=== PATIENT | female | born 1990 | race Caucasian/White ===

== ENCOUNTER 2024-08-11 15:48 | Emergency (ER) | payer OTHER ==
[2024-08-11] MEDS ORDERED: METOCLOPRAMIDE 10 MG/2mL INJ ONE (16:22)
[2024-08-11] MEDS ORDERED: NA CHLORIDE 0.9% 1,000 ML ONE ×2 (16:23→16:44)
[2024-08-11 16:33] LABS: Absolute Eosinophils 0.1 K/uL (0-0.5); Absolute Lymphocytes (CBC) 1.7 K/uL (0.7-4.9); Absolute Monocytes 0.8 K/uL (0.1-1.3); Absolute Neutrophil 9.8 K/uL (1.8-8.0); Basophils % 0.3 % (0-1.3); Eosinophils % 0.8 % (0-4.4); Hematocrit 37.8 % (36.0-45.0); Hemoglobin 13.4 g/dL (12.0-15.0); Lymphocytes % 13.9 % (15.3-44.8); MCH 29.5 pg (27.0-35.0); MCHC 35.5 g/dL (32.0-36.0); MCV 83.1 fL (80-100); MPV 8.1 fL (7.6-11.3); Monocytes % 6.6 % (3.3-12.3); Neutrophils % 78.4 % (41.7-73.7); Platelets 333 thou/uL (152-406); RBC Red Blood Cell Count 4.54 M/uL (3.86-4.86); Red Cell Distribution Width 12.7 % (12.1-15.2)
[2024-08-11 16:35] LABS: Specific Gravity > 1.030 (1.005-1.030); Urine Bacteria None Seen /HPF (<20); Urine Bilirubin NEGATIVE (Negative); Urine Blood Negative (Negative); Urine Clarity Extremely Turbid (Clear); Urine Color Yellow (Yellow); Urine Crystals Unidentified Few /HPF (None Seen); Urine Culture Reflex Order NOT NEEDED; Urine Glucose NEGATIVE (Negative); Urine Ketones 4+ (Over) (Negative); Urine Micro Reflex YN NO BILL MICROSCOPIC; Urine Mucus 4+ /HPF (None Seen); Urine Nitrite NEGATIVE (Negative); Urine Protein 2+ (Negative); Urine RBC <5 /HPF (None Seen); Urine Urobilinogen 1+ (Normal); Urine WBC <5 /HPF (<5); Urine WBC Clump Rare /HPF (None Seen)
[2024-08-11 16:48] LABS: Anion Gap 10.5 mEq/L (5.0-15.0); Potassium 3.5 mEq/L (3.5-5.1)
--- NOTE | 2024-08-11 18:30 | EDPHYS ---
Physician Documentation [facility] Name: Marti Gill Age: 33 yrs Sex: Female : 1990 Arrival Date: 08/11/2024 Time: 15:48 Bed 10 Private MD: ED Physician Balaji Garrison HPI: 08/11 15:59 This 33 yrs old Female presents to ER via Ambulatory with complaints of 14 wks sb4 , Vomiting. 15:59 n/v since last night, cannot hold anything down. no diarrhea, fever, abdominal sb4 cramping, vag bleeding. approx 14 weeks , saw OB 2 weeks ago and had ultrasound- everything WNL. BLOCKLAYER: 18:51 Verified me1 Historical: - Allergies: 15:52 Bactrim; aa5 15:52 Sulfa (Sulfonamide Antibiotics); aa5 - PMHx: 15:52 None; aa5 - PSHx: 15:52 section; aa5 - Immunization history:: Adult Immunizations unknown. - Infectious Disease History:: Denies. - Social history:: Smoking status: Patient denies any tobacco usage or history of. ROS: 16:01 Constitutional: Negative for fever, chills, and weight loss, sb4 16:01 Abdomen/GI: Positive for nausea and vomiting, 16:01 All other systems are negative, Exam: 16:01 Head/Face: Normocephalic, atraumatic. Eyes: Extra-ocular motions intact. Periorbital sb4 areas with no swelling, redness, or edema. ENT: Mucous membranes moist. Cardiovascular: Regular rate and rhythm with a normal S1 and S2. Respiratory: No increased work of breathing, no retractions or nasal flaring. Abdomen/GI: Soft, non-tender, no distension. Skin: Warm, dry with normal turgor. Normal color with no rashes, no lesions, and no evidence of cellulitis. 16:01 Constitutional: The patient appears alert, awake, obviously ill, Vital Signs: 15:52 BP 122 / 81; Pulse 110; Resp 18 S; Temp 98.3(O); Pulse Ox 98% on R/A; Weight 65.77 kg aa5 (R); Height 5 ft. 3 in. (R); 17:00 BP 116 / 79; Pulse 107; Resp 17; Pulse Ox 99% ; me1 18:00 BP 119 / 81; Pulse 108; Resp 17; Pulse Ox 98% ; me1 18:50 BP 110 / 65; Pulse 102; Resp 17; Temp 98.2; Pulse Ox 100% ; me1 15:52 Body Mass Index 25.69 (65.77 kg, 160.02 cm) aa5 MDM: 15:51 Medical Screening Exam initiated sb4 19:31 Data reviewed: vital signs, nurses notes, lab test result(s), and as a result, I will sb4 discharge patient. Counseling: I had a detailed discussion with the patient and/or guardian regarding the historical points, exam findings, and any diagnostic results supporting the discharge/admit diagnosis, lab results, the need for outpatient follow up, for definitive care, an OB/Gyne specialist, to return to the emergency department if symptoms worsen or persist or if there are any questions or concerns that arise at home. 08/11 15:58 Order name: CBC with Diff; Complete Time: 16:38 sb4 08/11 15:58 Order name: BMP; Complete Time: 16:48 sb4 08/11 15:58 Order name: UAM; Complete Time: 16:36 sb4 08/11 15:58 Order name: IV Start; Complete Time: 16:26 sb4 08/11 15:58 Order name: FHT's; Complete Time: 17:14 sb4 08/11 17:04 Order name: PO challenge; Complete Time: 18:12 sb4 Administered Medications: 16:35 Drug: NS 0.9% IV 1000 ml IV at 1 bolus Per protocol; to be given as a bolus over 60 me1 minutes Route: IV; Rate: 1 bolus; Site: right antecubital; 18:51 Follow up: Response: No adverse reaction; IV Status: Completed infusion; IV Intake: me1 1000ml 16:35 Drug: metoCLOPramide IVP 10 mg IVP once; over 1 to 2 minutes Route: IVP; Site: right me1 antecubital; 18:05 Follow up: Response: No adverse reaction; Nausea is decreased me1 16:48 Drug: NS 0.9% IV 1000 ml IV at 1000 ml once; to be given as a bolus over 60 minutes me1 Route: IV; Rate: 1000 ml; Site: right antecubital; 18:50 Follow up: Response: No adverse reaction; IV Status: Completed infusion; IV Intake: me1 1000ml Disposition: 18:02 I was immediately available on-site in the Emergency Department for consultation in the ms3 care of the patient. Disposition Summary: 08/11/24 18:30 Discharge Ordered Notes: Location: Home sb4 Problem: new sb4 Symptoms: have improved sb4 Condition: Stable sb4 Diagnosis - Vomiting of , unspecified sb4 Followup: sb4 - With: Emergency Department - When: As needed - Reason: Worsening of condition Discharge Instructions: - Discharge Summary Sheet sb4 - Morning Sickness, Dant-br-Tfbc sb4 Forms: - Patient Portal Instructions sb4 - Leadership Thank You Letter sb4 Prescriptions: - ondansetron 4 mg Oral Tablet,disintegrating - take 1 tablet ORAL route every 6 hours; 12 tablet; Refills: 0, Product sb4 Selection Permitted Signatures: Dispatcher [employer] EDLeila Evans, RN RN aa5 Balaji Garrison, DO ms3 Anabella Arnold PAAbel PAAbel sb4 Rosie Hu, ISIDORO RN me1 Corrections: (The following items were deleted from the chart) 15:59 15:59 CBC+H.LAB.BRZ ordered. EDMS EDMS 15:59 15:59 BASIC METABOLIC PANEL+C.LAB.BRZ ordered. EDMS EDMS 15:59 15:59 Urinalysis W/Microscopic+U.LAB.BRZ ordered. EDMS EDMS
--- NOTE | 2024-08-11 18:30 | ER ---
Nurse's Notes [facility] Name: Marti Gill Age: 33 yrs Sex: Female : 1990 Arrival Date: 08/11/2024 Time: 15:48 Bed 10 Private MD: Diagnosis: Vomiting of , unspecified Presentation: 08/11 15:52 Chief complaint: Patient states: nausea since Sunday and vomiting since yesterday. aa5 Reports being 14 weeks and reports "had a stomach bug about a week ago". Coronavirus screen: vomiting. Ebola Screen: Patient denies travel to an Ebola-affected area in the 21 days before illness onset. Initial Sepsis Screen: Does the patient meet any 2 criteria? HR > 90 bpm. Does the patient have a suspected source of infection? No. Patient's initial sepsis screen is negative. Risk Assessment: Do you want to hurt yourself or someone else? Patient reports no desire to harm self or others. Onset of symptoms was August 2024. 15:52 Method Of Arrival: Ambulatory aa5 15:52 Acuity: SANTIAGO 3 aa5 BREAD BAKER: 18:51 Verified me1 Historical: - Allergies: 15:52 Bactrim; aa5 15:52 Sulfa (Sulfonamide Antibiotics); aa5 - PMHx: 15:52 None; aa5 - PSHx: 15:52 section; aa5 - Immunization history:: Adult Immunizations unknown. - Infectious Disease History:: Denies. - Social history:: Smoking status: Patient denies any tobacco usage or history of. Screenin:15 [facility] ED Fall Risk Assessment (Adult) History of falling in the last 3 months, me1 including since admission No falls in past 3 months (0 pts) Confusion or Disorientation No (0 pts) Intoxicated or Sedated No (0 pts) Impaired Gait No (0 pts) Mobility Assist Device Used No (0 pt) Altered Elimination No (0 pt) Score/Fall Risk Level 0 - 2 = Low Risk Maintained a safe environment, Provided non-skid footwear, Hourly rounding (assess needs \\T\\ fall precautionary measures) done. Abuse screen: Denies threats or abuse. Nutritional screening: No deficits noted. Tuberculosis screening: No symptoms or risk factors identified. Assessment: 16:15 General: Appears ill, well groomed, well developed, well nourished, Behavior is calm, me1 cooperative, appropriate for age, Reports nausea since Sunday and vomiting since yesterday. Reports being 14 weeks and reports "had a stomach bug about a week ago". Pain: Denies pain. Neuro: Level of Consciousness is awake, alert, obeys commands, Oriented to person, place, time, situation, Appropriate for age. Cardiovascular: Patient's skin is warm and dry. Respiratory: Airway is patent Respiratory effort is even, unlabored, Respiratory pattern is regular, symmetrical. GI: Abdomen is round Bowel sounds present X 4 quads. Reports nausea, vomiting. : No signs and/or symptoms were reported regarding the genitourinary system. EENT: No signs and/or symptoms were reported regarding the EENT system. Derm: Skin is intact, with poor turgor Skin is pale. Musculoskeletal: No signs and/or symptoms reported regarding the musculoskeletal system. 17:15 Reassessment: FHT 155 bpm, provider notified. . aa5 Vital Signs: 15:52 BP 122 / 81; Pulse 110; Resp 18 S; Temp 98.3(O); Pulse Ox 98% on R/A; Weight 65.77 kg aa5 (R); Height 5 ft. 3 in. (R); 17:00 BP 116 / 79; Pulse 107; Resp 17; Pulse Ox 99% ; me1 18:00 BP 119 / 81; Pulse 108; Resp 17; Pulse Ox 98% ; me1 18:50 BP 110 / 65; Pulse 102; Resp 17; Temp 98.2; Pulse Ox 100% ; me1 15:52 Body Mass Index 25.69 (65.77 kg, 160.02 cm) aa5 ED Course: 15:50 Patient arrived in ED. mr 15:50 Anabella Arnold PA-C is PHCP. sb4 15:50 Balaji Garrison DO is Attending Physician. sb4 15:51 Arm band placed on. aa5 15:54 Triage completed. aa5 16:15 Patient has correct armband on for positive identification. Bed in low position. Call me1 light in reach. Side rails up X 1. Provided Education on: POC. Verbalized understanding.. Client placed on continuous cardiac and pulse oximetry monitoring. NIBP monitoring applied. Pulse ox on. NIBP on. 16:15 No provider procedures requiring assistance completed. me1 16:18 Rosie Hu, RN is Primary Nurse. me1 16:26 UAM Sent. me1 16:26 CBC with Diff Sent. me1 16:26 BMP Sent. me1 16:26 Initial lab(s) drawn, by me, sent to lab. Urine collected: clean catch specimen, me1 cloudy, kiana colored. Inserted saline lock: 22 gauge in right antecubital area, using aseptic technique. 18:51 IV discontinued, intact, bleeding controlled, No redness/swelling at site. Pressure me1 dressing applied. Administered Medications: 16:35 Drug: NS 0.9% IV 1000 ml IV at 1 bolus Per protocol; to be given as a bolus over 60 me1 minutes Route: IV; Rate: 1 bolus; Site: right antecubital; 18:51 Follow up: Response: No adverse reaction; IV Status: Completed infusion; IV Intake: me1 1000ml 16:35 Drug: metoCLOPramide IVP 10 mg IVP once; over 1 to 2 minutes Route: IVP; Site: right me1 antecubital; 18:05 Follow up: Response: No adverse reaction; Nausea is decreased me1 16:48 Drug: NS 0.9% IV 1000 ml IV at 1000 ml once; to be given as a bolus over 60 minutes me1 Route: IV; Rate: 1000 ml; Site: right antecubital; 18:50 Follow up: Response: No adverse reaction; IV Status: Completed infusion; IV Intake: me1 1000ml Medication: 16:15 VIS not applicable for this client. me1 Intake: 18:50 IV: 1000ml; Total: 1000ml. me1 18:51 IV: 1000ml; Total: 2000ml. me1 Outcome: 18:30 Discharge ordered by . sb4 18:51 Discharged to home ambulatory, me1 18:51 Condition: stable 18:51 Discharge instructions given to patient, Instructed on discharge instructions, follow up and referral plans. medication usage, Demonstrated understanding of instructions, follow-up care, medications, Prescriptions given X 1, 18:52 Patient left the ED. me1 Signatures: Norma Andrea, Reg Reg mr DegrootLeila, RN RN aa5 Anabella Arnold, PA-C PA-C sb4 Rosie Hu, RN RN me1 Corrections: (The following items were deleted from the chart) 18:07 15:52 Chief complaint: Patient states: nausea since Sunday and vomiting since yesterday. Reports being 14 weeks and reports "had a stomach bug about a week ago" aa5
[2024-08-11 19:18] VITALS: BP 110/65; TEMP 98.2; O2SAT 100
== END 2024-08-11 18:52 | disposition home or self-care (01) ==
LOC: ER 15:48
DX: O21.9 Vomiting of pregnancy, unspecified (principal); Z3A.14 14 weeks gestation of pregnancy
CPT/HCPCS: 85025; 81001; 80048; 36415; J2765; J7030 ×2; 96361; 96374; 99284